=== PATIENT | male | born 1960 | race African-American/Black ===

== ENCOUNTER 2020-11-18 08:48 | Inpatient (IN) | payer SELFPAY ==
[2020-11-18 09:12] LABS: Absolute Lymphocytes (CBC) 2.2 K/uL (0.7-4.9); Hematocrit 44.6 % (39.6-49.0); Lymphocytes % 36.5 % (15.3-44.8); MPV 8.5 fL (7.6-11.3); RBC Red Blood Cell Count 5.01 M/uL (4.33-5.43)
[2020-11-18 09:20] LABS: Protime INR 0.92
--- NOTE | 2020-11-18 09:22 | EDPHYS ---
Physician Documentation [facility] Name: Kervin Young Age: 59 yrs Sex: Male : 1960 Arrival Date: 11/18/2020 Time: 08:50 Bed 7 Private MD: ED Physician London Fierro HPI: 11/18 09:16 This 59 yrs old Black Male presents to ER via EMS with complaints of Chest Pain. joey 09:16 The patient or guardian reports chest pain that is located primarily in the substernal joey area, anterior chest wall, bilaterally. Onset: this morning. The pain does not radiate. Associated signs and symptoms: Pertinent positives: dizziness, shortness of breath. The chest pain is described as crushing, squeezing. Duration: The patient or guardian reports multiple episodes, that wax and wane. Modifying factors: The symptoms are alleviated by nothing. the symptoms are aggravated by nothing. Severity of pain: At its worst the pain was moderate in the emergency department the pain is unchanged. The patient has experienced a previous episode, last week. Historical: - Allergies: 08:52 No Known Allergies; aa5 - Home Meds: 08:52 None [Active]; aa5 - PMHx: 08:52 Hypertensive disorder; "Hole in chest as a kid"; aa5 - PSHx: 08:52 None; aa5 - Immunization history:: Adult Immunizations unknown. - Social history:: Smoking status: Patient denies any tobacco usage or history of. - Family history:: not pertinent. ROS: 09:16 Constitutional: Negative for fever, chills, and weight loss, Eyes: Negative for injury, joey pain, redness, and discharge, ENT: Negative for injury, pain, and discharge, Neck: Negative for injury, pain, and swelling, Respiratory: Negative for shortness of breath, cough, wheezing, and pleuritic chest pain, Abdomen/GI: Negative for abdominal pain, nausea, vomiting, diarrhea, and constipation, Back: Negative for injury and pain, : Negative for injury, bleeding, discharge, and swelling, MS/Extremity: Negative for injury and deformity, Skin: Negative for injury, rash, and discoloration, Neuro: Negative for headache, weakness, numbness, tingling, and seizure, Psych: Negative for depression, anxiety, suicide ideation, homicidal ideation, and hallucinations, Allergy/Immunology: Negative for hives, rash, and allergies, Endocrine: Negative for neck swelling, polydipsia, polyuria, polyphagia, and marked weight changes, Hematologic/Lymphatic: Negative for swollen nodes, abnormal bleeding, and unusual bruising. 09:16 Cardiovascular: Positive for chest pain. Exam: 09:16 Constitutional: This is a well developed, well nourished patient who is awake, alert, joey and in no acute distress. Head/Face: Normocephalic, atraumatic. Eyes: Pupils equal round and reactive to light, extra-ocular motions intact. Lids and lashes normal. Conjunctiva and sclera are non-icteric and not injected. Cornea within normal limits. Periorbital areas with no swelling, redness, or edema. ENT: Nares patent. No nasal discharge, no septal abnormalities noted. Tympanic membranes are normal and external auditory canals are clear. Oropharynx with no redness, swelling, or masses, exudates, or evidence of obstruction, uvula midline. Mucous membranes moist. Neck: Trachea midline, no thyromegaly or masses palpated, and no cervical lymphadenopathy. Supple, full range of motion without nuchal rigidity, or vertebral point tenderness. No Meningismus. Chest/axilla: Normal chest wall appearance and motion. Nontender with no deformity. No lesions are appreciated. Respiratory: Lungs have equal breath sounds bilaterally, clear to auscultation and percussion. No rales, rhonchi or wheezes noted. No increased work of breathing, no retractions or nasal flaring. Abdomen/GI: Soft, non-tender, with normal bowel sounds. No distension or tympany. No guarding or rebound. No evidence of tenderness throughout. Back: No spinal tenderness. No costovertebral tenderness. Full range of motion. Male : Normal genitalia with no discharge or lesions. Skin: Warm, dry with normal turgor. Normal color with no rashes, no lesions, and no evidence of cellulitis. MS/ Extremity: Pulses equal, no cyanosis. Neurovascular intact. Full, normal range of motion. Neuro: Awake and alert, GCS 15, oriented to person, place, time, and situation. Cranial nerves II-XII grossly intact. Motor strength 5/5 in all extremities. Sensory grossly intact. Cerebellar exam normal. Normal gait. Psych: Awake, alert, with orientation to person, place and time. Behavior, mood, and affect are within normal limits. 09:16 Cardiovascular: Rate: normal, Rhythm: regular, Pulses: Pulses are 4+ in bilateral radial, brachial, femoral, popliteal, posterior tibial and and dorsalis pedis arteries.. Heart sounds: normal, normal S1and S2, no S3 or S4, no murmur, no rub, no gallop, Edema: is not appreciated, JVD: is not appreciated. 09:16 ECG was reviewed by the Attending Physician. Vital Signs: 08:50 BP 113 / 80; Pulse 71; Resp 16 S; Temp 98.0(TE); Pulse Ox 99% on R/A; Weight 79.38 kg aa5 (R); Height 5 ft. 8 in. (172.72 cm) (R); Pain 0/10; 09:45 BP 132 / 97; Pulse 71; Resp 16 S; Pulse Ox 97% on R/A; aa5 10:00 BP 126 / 84; Pulse 61; Resp 16 S; Pulse Ox 100% on R/A; aa5 11:15 BP 134 / 83; Pulse 65; Resp 18 S; Pulse Ox 100% on R/A; aa5 08:50 Body Mass Index 26.61 (79.38 kg, 172.72 cm) aa5 MDM: 08:53 Patient medically screened. joey 09:19 Differential diagnosis: abnormal EKG, acute myocardial infarction, acute pericarditis, joey anxiety, chest wall pain, cholecystitis, Cholelithiasis costochondritis, gastroesophageal reflux disease (GERD), hiatal hernia, pancreatitis, peptic ulcer disease, pleurisy, pneumonia, pulmonary embolus, stable angina, thoracic aortic disection, unstable angina. HEART Score: History: Moderately Suspicious (1), ECG: Non specific repolarization disturbance / LBTB / PM (1), Age: > 45 and < 65 years (1), Risk Factors: > or = 3 Risk factors for atherosclerotic disease (2), [Hypercholesterolemia] [Hypertension] [Active Smoker] [+ Family HX] Troponin: < or = 1 x Normal Limit (0). The patient was given aspirin in the Emergency Department. The patient's deep vein thrombosis risk score was calculated as follows: Total Score: 0. This patient was found to be at low risk for a deep vein thrombosis by using the Well's assessment criteria. The patient's pulmonary embolism risk score was calculated as follows: Total Score: 0-2 points. This patient was found to be at low risk for a pulmonary embolism by using the Well's assessment criteria. MANISH Risk Score: TOTAL SCORE = 0. Data reviewed: vital signs, nurses notes, lab test result(s), EKG, radiologic studies, plain films. Data interpreted: ekg monitor tech: rate is 71 beats/min, rhythm is regular, Pulse oximetry: on room air is 99 %. Test interpretation: by ED physician or midlevel provider: ECG, plain radiologic studies. Counseling: I had a detailed discussion with the patient and/or guardian regarding: the historical points, exam findings, and any diagnostic results supporting the discharge/admit diagnosis, the presence of at least one elevated blood pressure reading (>120/80) during this emergency department visit, lab results, radiology results, the need for further work-up and treatment in the hospital. 11/18 08:53 Order name: Basic Metabolic Panel; Complete Time: 10:20 aa5 11/18 08:53 Order name: CBC with Diff; Complete Time: 10:20 aa11/18 08:53 Order name: LFT's; Complete Time: 10:20 aa5 11/18 08:53 Order name: Magnesium; Complete Time: 10:20 aa5 11/18 08:53 Order name: NT PRO-BNP; Complete Time: 10:20 aa5 11/18 08:53 Order name: PT-INR; Complete Time: 10:20 aa5 11/18 08:53 Order name: Troponin (emerg Dept Use Only); Complete Time: 10:20 aa5 11/18 08:55 Order name: XRAY Chest (1 view); Complete Time: 10:20 joey 11/18 09:15 Order name: Urine Drug Screen joey 11/18 09:16 Order name: Urine Drug Screen; Complete Time: 11:50 EDMS 11/18 10:26 Order name: Urine Dipstick-Ancillary; Complete Time: 11:50 EDMS 11/18 10:30 Order name: SARS-COV-2 RT PCR; Complete Time: 11:50 EDMS 11/18 08:53 Order name: EKG; Complete Time: 08:54 aa5 11/18 08:53 Order name: Cardiac monitoring; Complete Time: 08:54 aa5 11/18 08:53 Order name: EKG - Nurse/Tech; Complete Time: 08:54 [facility] 11/18 08:53 Order name: IV Saline Lock; Complete Time: 08:56 [facility] 11/18 08:53 Order name: Labs collected and sent; Complete Time: 08:56 [facility] 11/18 08:53 Order name: O2 Per Protocol; Complete Time: 08:54 [facility] 11/18 08:53 Order name: O2 Sat Monitoring; Complete Time: 08:54 [facility] 11/18 08:55 Order name: Labs collected and sent; Complete Time: 08:57 [facility] 11/18 08:55 Order name: Urine Dipstick-Ancillary (obtain specimen); Complete Time: 10:26 [facility] EC:16 Rate is 70 beats/min. Rhythm is regular. QRS Harmony is Normal. ID interval is normal. QRS joey interval is normal. QT interval is normal. No Q waves. T waves are Normal. No ST changes noted. Clinical impression: NSR w/ Non-specific ST/T Changes and No evidence of ischemia. Interpreted by me. Reviewed by me. Administered Medications: 09:15 Drug: NS 0.9% 1000 ml Route: IV; Rate: 125 ml/hr; Site: right forearm; aa5 11:54 Follow up: IV Status: Order to discontinue infusion aa5 09:15 Drug: morphine 2 mg Route: IVP; Site: right forearm; aa5 09:30 Follow up: Response: No adverse reaction; Pain is decreased aa5 09:15 Drug: Zofran (Ondansetron) 4 mg Route: IVP; Site: right forearm; aa5 09:30 Follow up: Response: No adverse reaction aa5 09:15 Drug: Aspirin 81 mg Route: PO; aa5 11:48 Follow up: Response: No adverse reaction aa5 09:35 Drug: Lovenox (enoxaparin) 1 mg/kg Route: Sub-Q; Site: right lower abdomen; aa5 11:48 Follow up: Response: No adverse reaction aa5 09:35 Drug: Pepcid (famotidine) 20 mg Route: IVP; Site: right forearm; aa5 11:48 Follow up: Response: No adverse reaction aa5 10:22 Drug: NS 0.9% 1000 ml Route: IV; Rate: 1000 ml; Site: right forearm; aa5 11:30 Follow up: IV Status: Completed infusion; IV Intake: 1000ml aa5 11:36 Drug: Lopressor (metoprolol TARTRATE)) 25 mg Route: PO; aa5 11:47 Follow up: Response: No adverse reaction aa5 Disposition Summary: 11/18/20 09:22 Hospitalization Ordered Hospitalization Status: Observation joey Provider: Al Estrada cha Location: Telemetry/MedSurg (observation) joey Condition: Stable joey Problem: new joey Symptoms: have improved joey Bed/Room Type: Standard joey Room Assignment: 224(11/18/20 10:20) dw Diagnosis - Chest pain, unspecified joey - Essential (primary) hypertension joey - Angina pectoris, unspecified joey Forms: - Medication Reconciliation Form joey - SBAR form joey Signatures: Dispatcher [employer] Julissa Walker RN RN London Nash MD MD cha Calderon, Audri, RN RN aa5 Corrections: (The following items were deleted from the chart) 08:56 08:55 Cardiac monitoring ordered. [facility] aa5 08:57 08:55 EKG - Nurse/Tech ordered. joey aa5 08:57 08:55 IV Saline Lock ordered. [facility] aa5 08:57 08:55 Oxygen Per Protocol ordered. [facility] aa5 08:57 08:55 O2 Sat Monitoring ordered. [facility] aa5 08:57 08:55 BASIC METABOLIC PANEL+C.LAB.BRZ ordered. EDMS EDMS 08:57 08:55 CBC+H.LAB.BRZ ordered. EDMS EDMS 08:57 08:55 HEPATIC FUNCTION+C.LAB.BRZ ordered. EDMS EDMS 08:57 08:55 MAGNESIUM+C.LAB.BRZ ordered. EDMS EDMS 08:57 08:55 PROBNP+C.LAB.BRZ ordered. EDMS EDMS 08:57 08:55 PROTIME (+INR)+COAG.LAB.BRZ ordered. EDMS EDMS 08:57 08:55 TROPONIN (EMERG DEPT USE ONLY)+C.LAB.BRZ ordered. EDMS EDMS 08:57 08:55 LIPASE+C.LAB.BRZ ordered. EDMS EDMS 09:18 08:54 Chest Single View+RAD.RAD.BRZ ordered. EDMS EDMS 09:35 08:55 CORONAVIRUS+MR.LAB.BRZ ordered. EDMS EDMS 10:20 09:22 joey dw
--- NOTE | 2020-11-18 09:22 | ER ---
Nurse's Notes [facility] [place] Name: Kervin Young Age: 59 yrs Sex: Male : 1960 Arrival Date: 11/18/2020 Time: 08:50 Bed 7 Private MD: Diagnosis: Chest pain, unspecified;Essential (primary) hypertension;Angina pectoris, unspecified Presentation: 11/18 08:50 Chief complaint: Patient states: Intermittent mid-sternal chest pain that began 2 days aa5 ago. Pt denies any other symptoms, denies nausea/vomiting, denies SOB. Coronavirus screen: At this time, the client does not indicate any symptoms associated with coronavirus-19. Ebola Screen: Patient negative for fever greater than or equal to 101.5 degrees Fahrenheit, and additional compatible Ebola Virus Disease symptoms. Initial Sepsis Screen: Does the patient meet any 2 criteria? No. Patient's initial sepsis screen is negative. Does the patient have a suspected source of infection? No. Patient's initial sepsis screen is negative. Risk Assessment: Do you want to hurt yourself or someone else? Patient reports no desire to harm self or others. Onset of symptoms was November 2020. 08:50 Acuity: BLU 3 aa5 08:50 Method Of Arrival: EMS: [facility] aa5 Historical: - Allergies: 08:52 No Known Allergies; aa5 - Home Meds: 08:52 None [Active]; aa5 - PMHx: 08:52 Hypertensive disorder; "Hole in chest as a kid"; aa5 - PSHx: 08:52 None; aa5 - Immunization history:: Adult Immunizations unknown. - Social history:: Smoking status: Patient denies any tobacco usage or history of. - Family history:: not pertinent. Screenin:53 Abuse screen: Denies threats or abuse. Nutritional screening: No deficits noted. aa5 Tuberculosis screening: No symptoms or risk factors identified. Fall Risk None identified. Assessment: 08:54 General: Appears comfortable, Behavior is calm, cooperative. Pain: Complains of pain in aa5 mid-sternal area Pain does not radiate. Pain currently is 0 out of 10 on a pain scale. Quality of pain is described as sharp, Pain began 1 day ago. Is intermittent. Neuro: Level of Consciousness is awake, alert, obeys commands, Oriented to person, place, time, situation. Cardiovascular: Heart tones S1 S2 present Rhythm is regular. Respiratory: Airway is patent Respiratory effort is even, unlabored, Respiratory pattern is regular, symmetrical, Breath sounds are clear bilaterally. Denies cough, shortness of breath. GI: No signs and/or symptoms were reported involving the gastrointestinal system. Patient currently denies diarrhea, nausea, vomiting. : No signs and/or symptoms were reported regarding the genitourinary system. EENT: No signs and/or symptoms were reported regarding the EENT system. Derm: Skin is dry, Skin is normal, Skin temperature is warm. Musculoskeletal: Range of motion: intact in all extremities. 09:15 Reassessment: Pt rates pain 8/10 on a pain scale at this time. . aa5 09:15 Neuro: Level of Consciousness is awake, alert, obeys commands, Oriented to person, aa5 place, time, situation. Respiratory: Airway is patent Respiratory effort is even, unlabored, Respiratory pattern is regular, symmetrical. Derm: Skin is dry, Skin is normal, Skin temperature is warm. 09:21 Reassessment: Pt reports he is currently at [facility] for cocaine abuse, last aa5 use was "3 weeks ago" . 10:22 Reassessment: Urine collected, UDS sent to lab. Metoprolol on hold per MD until UDS aa5 results. . 10:22 Neuro: Level of Consciousness is awake, alert, obeys commands, Oriented to person, aa5 place, time, situation. Respiratory: Airway is patent Respiratory effort is even, unlabored, Respiratory pattern is regular, symmetrical. Derm: Skin is dry, Skin is normal, Skin temperature is warm. 11:33 Reassessment: Attempted to call report, nurse to call back. sv 11:33 Neuro: Level of Consciousness is awake, alert, obeys commands, Oriented to person, aa5 place, time, situation. Respiratory: Airway is patent Respiratory effort is even, unlabored, Respiratory pattern is regular, symmetrical. Derm: Skin is dry, Skin is normal, Skin temperature is warm. 11:33 Pain: Denies pain. aa5 12:15 Neuro: Level of Consciousness is awake, alert, obeys commands, Oriented to person, aa5 place, time, situation. Respiratory: Airway is patent Respiratory effort is even, unlabored, Respiratory pattern is regular, symmetrical. Derm: Skin is dry, Skin is normal, Skin temperature is warm. Vital Signs: 08:50 BP 113 / 80; Pulse 71; Resp 16 S; Temp 98.0(TE); Pulse Ox 99% on R/A; Weight 79.38 kg aa5 (R); Height 5 ft. 8 in. (172.72 cm) (R); Pain 0/10; 09:45 BP 132 / 97; Pulse 71; Resp 16 S; Pulse Ox 97% on R/A; aa5 10:00 BP 126 / 84; Pulse 61; Resp 16 S; Pulse Ox 100% on R/A; aa5 11:15 BP 134 / 83; Pulse 65; Resp 18 S; Pulse Ox 100% on R/A; aa5 08:50 Body Mass Index 26.61 (79.38 kg, 172.72 cm) 5 ED Course: 08:50 Patient arrived in ED. aa5 08:50 Arm band placed on Patient placed in an exam room, on a stretcher. EKG completed in [facility] triage. Results shown to MD. 08:50 Patient has correct armband on for positive identification. Bed in low position. Call [facility] light in reach. Side rails up X2. playground monitor on. Pulse ox on. NIBP on. 08:50 Inserted saline lock: 20 gauge in right forearm, using aseptic technique. Blood sv collected. Flushed right forearm with 5 ml normal saline. 08:50 EKG done, by ED staff, reviewed by London Fierro MD. [facility] 08:52 Triage completed. aa5 08:53 London Fierro MD is Attending Physician. joey 08:54 Denita Turcios, ARMANDO is Primary Nurse. aa5 09:19 XRAY Chest (1 view) In Process Unspecified. EDMS 09:21 Al Estrada DO is Hospitalizing Provider. joey 11:11 Urine Drug Screen Sent. sv 12:15 No provider procedures requiring assistance completed. Patient maintains SpO2 aa saturation greater than 95% on room air. 12:15 Patient admitted, IV remains in place. aa5 Administered Medications: 09:15 Drug: NS 0.9% 1000 ml Route: IV; Rate: 125 ml/hr; Site: right forearm; [facility] 11:54 Follow up: IV Status: Order to discontinue infusion aa5 09:15 Drug: morphine 2 mg Route: IVP; Site: right forearm; aa5 09:30 Follow up: Response: No adverse reaction; Pain is decreased aa5 09:15 Drug: Zofran (Ondansetron) 4 mg Route: IVP; Site: right forearm; aa5 09:30 Follow up: Response: No adverse reaction aa5 09:15 Drug: Aspirin 81 mg Route: PO; aa5 11:48 Follow up: Response: No adverse reaction aa5 09:35 Drug: Lovenox (enoxaparin) 1 mg/kg Route: Sub-Q; Site: right lower abdomen; aa5 11:48 Follow up: Response: No adverse reaction aa5 09:35 Drug: Pepcid (famotidine) 20 mg Route: IVP; Site: right forearm; aa5 11:48 Follow up: Response: No adverse reaction aa5 10:22 Drug: NS 0.9% 1000 ml Route: IV; Rate: 1000 ml; Site: right forearm; aa5 11:30 Follow up: IV Status: Completed infusion; IV Intake: 1000ml aa5 11:36 Drug: Lopressor (metoprolol TARTRATE)) 25 mg Route: PO; aa5 11:47 Follow up: Response: No adverse reaction aa5 Intake: 11:30 IV: 1000ml; Total: 1000ml. aa5 Outcome: 09:22 Decision to Hospitalize by Provider. joey 12:15 Admitted to Med/surg accompanied by tech, via wheelchair, with chart, Report called to dary Trinidad RN 12:15 Condition: stable 12:15 Instructed on the need for admit, Demonstrated understanding of instructions. 12:20 Patient left the ED. iw Signatures: Dispatcher [employer] EDND Ct Treviño RN RN sv Anderson, Corey, MD MD cha Williams, Irene, RN RN iw Calderon, Audri, RN RN aa5 Herrera, Deanna 3 Corrections: (The following items were deleted from the chart) 11:46 09:15 Reassessment: Patient is alert, oriented x 3, equal unlabored respirations, skin aa5 warm/dry/pink. Pt rates pain 8/10 on a pain scale at this time. . aa5 17:32 11:15 No provider procedures requiring assistance completed. aa5 aa5 17:32 11:15 Patient maintains SpO2 saturation greater than 95% on room air. aa5 aa5
[2020-11-18] MEDS ORDERED: ASPIRIN 81 MG CHEWABLE TABLET ONE (09:26)
[2020-11-18] MEDS ORDERED: NA CHLORIDE 0.9% 1,000 ML ONE (09:26)
[2020-11-18] MEDS ORDERED: MORPHINE 2 MG/ML SYR ONE (09:31)
[2020-11-18] MEDS ORDERED: ONDANSETRON 4 MG/2 ML VIAL ONE (09:32)
[2020-11-18 09:33] LABS: ALT/SGPT 33 U/L (12-78); AST/SGOT 17 U/L (15-37); Albumin 3.5 g/dL (3.4-5.0); Alkaline Phosphatase 63 U/L (45-117); BUN Blood Urea Nitrogen 8 mg/dL (7-18); Bicarbonate 28 mmol/L (21-32); Bilirubin Direct < 0.1 mg/dL (0-0.2); Bilirubin Total 0.7 mg/dL (0.2-1.0); Glucose Level 106 mg/dL (74-106); NT PRO-BNP 21 pg/mL (<125); Potassium 4.1 mmol/L (3.5-5.1); Protein, Total 7.1 g/dL (6.4-8.2); Sodium Level 139 mmol/L (136-145); Troponin (Emerg Dept Use Only) < 0.02 ng/mL (0.0-0.045)
[2020-11-18] MEDS ORDERED: METOPROLOL TAR 25 MG TAB ONE (09:55)
[2020-11-18] MEDS ORDERED: ENOXAPARIN 80 MG/0.8 ML SQ ONE (09:55)
[2020-11-18] MEDS ORDERED: FAMOTIDINE 20 MG/2 ML VIAL IV ONE (09:55)
--- NOTE | 2020-11-18 10:02 | P.HP ---
Certification for Inpatient Patient admitted to: Observation With expected LOS: <2 Midnights Patient will require the following post-hospital care: None Practitioner: I am a practitioner with admitting privileges, knowledge of patient current condition, hospital course, and medical plan of care. Services: Services provided to patient in accordance with Admission requirements found in Title 42 Section 412.3 of the Code of Federal Regulations Patient History Date of Service: 11/18/20 Primary Care Provider: none, From [place] Reason for admission: Chest pain History of Present Illness: 59-year-old male presented to the emergency room with chest pain. Patient is originally from [facility]. He is here in the area recovering from cocaine abuse. He is at a treatment center-[facility]. He has been there for the past 3 weeks. Patient reports chest pain over the last 2 days. Chest pain is mainly to the substernal region. It lasts about 30-45 min. He denies any shortness of breath, nausea vomiting with this. He came to the ER for further evaluation. Patient reports a last use of cocaine about 3 weeks ago. Patient reports a history of a hole in his heart. He reports a history of hypertension but does not take any medications at this time. In the ER patient was evaluated. EKG shows some early repolarization. Initial cardiac enzymes unremarkable. BMP stable with a sodium 139, potassium 4.1, BUN of 8, creatinine 0.93 with a GFR greater than 90. Glucose 106. Patient admitted for further evaluation and treatment. Home medications list reviewed: Yes (Reports no medication) - Past Medical/Surgical History -: Cocaine abuse -: History of hypertension -: History of hole in his heart Past Surgical History: Patient denies surgical history Psychosocial/ Personal History: Patient currently at [facility] for cocaine rehab recovery. He is single. He has 3 kids. - Family History Family History: Reviewed- Non-Contributory - Social History Smoking Status: Never smoker Alcohol use: Yes CD- Drugs: Yes Caffeine use: No Place of Residence: Home Review of Systems General: Weakness, As per HPI Eyes: Unremarkable ENT: Unremarkable Respiratory: Unremarkable Cardiovascular: Chest Pain, As per HPI Gastrointestinal: Unremarkable Genitourinary: Unremarkable Musculoskeletal: Unremarkable Integumentary: Unremarkable Neurological: Unremarkable Lymphatics: Unremarkable Physical Examination - Physical Exam General: Alert, In no apparent distress, Oriented x3, Cooperative HEENT: Atraumatic, Normocephalic, Mucous membr. moist/pink Neck: Supple Respiratory: Clear to auscultation bilaterally, Normal air movement Cardiovascular: Normal pulses, Regular rate/rhythm Gastrointestinal: Normal bowel sounds, Soft and benign, Non-distended, No tenderness, No masses, No rebound, No guarding Musculoskeletal: No erythema, No tenderness, No warmth Integumentary: No tenderness/swelling, No erythema, No warmth, No cyanosis Neurological: Normal speech, Normal strength at 5/5 x4 extr, Normal tone, Normal affect - Studies Laboratory Data (last 24 hrs) 11/18/20 08:55: PT Cancelled, INR Cancelled 11/18/20 08:55: WBC Cancelled, Hgb Cancelled, Hct Cancelled, Plt Count Cancelled 11/18/20 08:55: Sodium Cancelled, Potassium Cancelled, BUN Cancelled, Creatinine Cancelled, Glucose Cancelled, Magnesium Cancelled, Total Bilirubin Cancelled, AST Cancelled, ALT Cancelled, Alkaline Phosphatase Cancelled, Lipase Cancelled 11/18/20 08:50: PT 10.6, INR 0.92 11/18/20 08:50: WBC 6.10, Hgb 15.1, Hct 44.6, Plt Count 285 11/18/20 08:50: Sodium 139, Potassium 4.1, BUN 8, Creatinine 0.93, Glucose 106, Magnesium 2.0, Total Bilirubin 0.7, AST 17, ALT 33, Alkaline Phosphatase 63 Assessment and Plan - Plan Impression: Chest pain History of cocaine abuse currently in recovery GERD Plan: Chest pain: Patient will be admitted for further evaluation and treatment. Will continue with aspirin, Lovenox for DVT prophylaxis, nitroglycerin as needed for chest pain. Will order echocardiogram to further evaluate. Will evaluate for septum defect. Consult cardiology. Cardiology to assess and evaluate. Patient may require inpatient cardiac evaluation. Await further recommendations. EKG reviewed with cardiology. Will provide medication for pain. History of cocaine abuse currently in recovery: Patient currently at a rehab facility for cocaine abuse. Patient reports last use of cocaine about 3 weeks ago. GERD: Will provide Protonix. DVT prophylaxis: Lovenox Code status: Full code Advanced care planning-30 min: Patient plans to return back to the rehab facility after evaluation by Cardioshira dorsey. Discharge Plan: Home Plan to discharge in: 24 Hours - Advance Directives Does patient have a Living Will: No Does patient have a Durable POA for Healthcare: No - Code Status/Comfort Care Code Status Assessed: Yes (Full code) Time Spent Managing Pts Care (In Minutes): 55
--- NOTE | 2020-11-18 10:19 | RAD REPORT ---
EXAM DESCRIPTION: RAD - Chest Single View - 11/18/2020 9:18 am CLINICAL HISTORY: Chest pain COMPARISON: None. TECHNIQUE: AP portable chest image was obtained . FINDINGS: Lungs are clear. Heart and vasculature are normal. No measurable pleural effusion and no p neumothorax. No gross bony abnormality seen. IMPRESSION: No acute cardiopulmonary process.
[2020-11-18 10:26] LABS: Urine Blood Negative (Negative); Urine Glucose Negative (Negative); Urine Protein Negative (Negative); Urine Specific Gravity 1.015 (1.005-1.030); Urine pH 7.5 (5.0-7.0)
[2020-11-18 11:04] LABS: Barbiturates NEGATIVE (NEGATIVE); Benzodiazepines NEGATIVE (NEGATIVE); Cocaine NEGATIVE (NEGATIVE); METHAMPHETAM NEGATIVE (NEGATIVE); Methadone NEGATIVE (NEGATIVE); Opiates NEGATIVE (NEGATIVE); Phencyclidine NEGATIVE (NEGATIVE); THC Cannibis NEGATIVE (NEGATIVE)
[2020-11-18] MEDS ORDERED: ONDANSETRON 4 MG/2 ML VIAL IV PRN (12:03)
[2020-11-18] MEDS ORDERED: NITROGLYCERIN 0.4 MG/TAB SL PRN (12:03)
[2020-11-18] MEDS: PANTOPRAZOLE 40MG TABLET PO SCH (12:03)
[2020-11-18] MEDS: ASPIRIN EC 81 MG TAB PO SCH (12:03)
[2020-11-18] MEDS ORDERED: ACETAMINOPHEN 500 MG TAB PO PRN (12:03)
[2020-11-18] MEDS ORDERED: TRAMADOL HCL 50 MG TAB PO PRN (12:03)
[2020-11-18 12:23] VITALS: BMI 26.6
[2020-11-18 14:58] LABS: Creatine Phosphokinase 137 U/L (39-308); Troponin I < 0.02 ng/mL (0.0-0.045)
[2020-11-18 15:05] LABS: CKMB Creatine Kinase MB < 1.0 ng/mL (1.0-3.6)
[2020-11-18] MEDS: NA CHLORIDE 0.9% 1,000 ML IV SCH (15:12)
[2020-11-18] MEDS: FOLIC ACID 1 MG TABLET PO SCH (15:12)
[2020-11-18] MEDS: THIAMINE HCL 100 MG TABLET PO SCH (15:15)
--- NOTE | 2020-11-18 16:08 | EKG ---
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
[2020-11-18 19:59] LABS: Creatine Phosphokinase 139 U/L (39-308); Troponin I < 0.02 ng/mL (0.0-0.045)
[2020-11-18 20:19] LABS: CKMB Creatine Kinase MB < 1.0 ng/mL (1.0-3.6)
[2020-11-19 05:20] LABS: BUN Blood Urea Nitrogen 8 mg/dL (7-18); Bicarbonate 29 mmol/L (21-32); Glucose Level 118 mg/dL (74-106); HDL Cholesterol 53 mg/dL (40-60); Potassium 4.2 mmol/L (3.5-5.1); Sodium Level 139 mmol/L (136-145)
[2020-11-19 05:31] LABS: LDL, Direct 125 mg/dL (100-129)
[2020-11-19] MEDS: PANTOPRAZOLE 40MG TABLET PO SCH (05:46)
[2020-11-19 06:08] VITALS: O2SAT 98
--- NOTE | 2020-11-19 06:10 | P.DS ---
Admission Date: 11/19/20 Discharge Date: 11/19/20 Primary Care Provider: none, From [place] Disposition: ROUTINE DISCHARGE Discharge Condition: GOOD Reason for Admission: Chest pain Consultations: Cardiology-Dr. Zuluaga Procedures: Stress test outpatient: Normal about 6 months ago per patient. Somewhere in [place] ECHO: Unremarkable Medical Problem list: Chest pain, atypical History of cocaine abuse currently in recovery GERD Mixed hyperlipidemia Brief History of Present Illness: 59-year-old male presented to the emergency room with chest pain. Patient is originally from [facility]. He is here in the area recovering from cocaine abuse. He is at a treatment center-[facility]. He has been there for the past 3 weeks. Patient reports chest pain over the last 2 days. Chest pain is mainly to the substernal region. It lasts about 30-45 min. He denies any shortness of breath, nausea vomiting with this. He came to the ER for further evaluation. Patient reports a last use of cocaine about 3 weeks ago. Patient reports a history of a hole in his heart. He reports a history of hypertension but does not take any medications at this time. In the ER patient was evaluated. EKG shows some early repolarization. Initial cardiac enzymes unremarkable. BMP stable with a sodium 139, potassium 4.1, BUN of 8, creatinine 0.93 with a GFR greater than 90. Glucose 106. Patient admitted for further evaluation and treatment. Hospital Course: Patient presented with chest pain. Chest pain was atypical. Patient with history of cocaine abuse currently in recovery. Patient was seen and evaluated by cardiology. Cardiology recommended no inpatient intervention. Echocardiogram unremarkable. Patient reports recent outpatient cardiac stress test within the past 6 months which was unremarkable. No further intervention required. Patient likely with underlying GERD. At discharge patient may continue with Pepcid 20 mg 1 pill twice daily. Recommend to follow-up with his PCP in 1 to 2 weeks to follow-up as hospitalization. Patient with history of cocaine abuse. Urine drug screen negative. Patient currently in recovery. Patient will return back to rehab facility continue his recovery. Patient has remained committed. Patient with mixed hyperlipidemia. Total triglycerides 419, LDL 125. Recommend to start fish oil 1000 mg 1 pill twice daily. Recommend to recheck fasting lipid panel in 4 to 6 weeks to monitor his progress. Further adjustment in medication can be done by his PCP. Vital Signs/Physical Exam: Temp Pulse Resp BP Pulse Ox 98.1 F 67 18 95/50 L 95 11/19/20 00:00 11/19/20 00:00 11/19/20 00:00 11/19/20 00:00 11/19/20 00:00 General: Alert, In no apparent distress, Oriented x3, Oriented x1 HEENT: Atraumatic Neck: Supple Respiratory: Clear to auscultation bilaterally, Normal air movement Cardiovascular: Normal pulses, Regular rate/rhythm Gastrointestinal: Normal bowel sounds, No tenderness, No masses, No rebound, No guarding Musculoskeletal: No erythema, No tenderness, No warmth Integumentary: No tenderness/swelling, No erythema, No warmth, No cyanosis Neurological: Normal speech, Normal strength at 5/5 x4 extr, Normal tone, Normal affect Laboratory Data at Discharge: WBC Cancelled 11/18/20 08:55 Hgb Cancelled 11/18/20 08:55 Hct Cancelled 11/18/20 08:55 Plt Count Cancelled 11/18/20 08:55 PT Cancelled 11/18/20 08:55 INR Cancelled 11/18/20 08:55 Sodium 139 mmol/L (136-145) 11/19/20 03:47 Potassium 4.2 mmol/L (3.5-5.1) 11/19/20 03:47 BUN 8 mg/dL (7-18) 11/19/20 03:47 Creatinine 0.97 mg/dL (0.55-1.3) 11/19/20 03:47 Glucose 118 mg/dL (74-106) H 11/19/20 03:47 Magnesium 2.0 mg/dL (1.8-2.4) 11/19/20 03:47 Total Bilirubin Cancelled 11/18/20 08:55 AST Cancelled 11/18/20 08:55 ALT Cancelled 11/18/20 08:55 Alkaline Phosphatase Cancelled 11/18/20 08:55 Troponin I < 0.02 ng/mL (0.0-0.045) 11/18/20 19:16 Triglycerides 419 mg/dL (<150) H 11/19/20 03:47 Cholesterol 225 mg/dL (<200) H 11/19/20 03:47 LDL Cholesterol Direct 125 mg/dL (100-129) 11/19/20 03:47 HDL Cholesterol 53 mg/dL (40-60) 11/19/20 03:47 Cholesterol/HDL Ratio 4.25 11/19/20 03:47 Lipase Cancelled 11/18/20 08:55 Home Medications: Docosahexanoic AC/Epa [Fish Oil 1,000 MG CAP] 1 cap PO BID #60 cap 11/19/20 Famotidine [Pepcid] 20 mg PO BID #60 tab 11/19/20 New Medications: Docosahexanoic AC/Epa [Fish Oil 1,000 MG CAP] 1 cap PO BID #60 cap Famotidine [Pepcid] 20 mg PO BID #60 tab Physician Discharge Instructions: Patient presented with chest pain. Chest pain was atypical. Patient with history of cocaine abuse currently in recovery. Patient was seen and evaluated by cardiology. Cardiology recommended no inpatient intervention. Echocardiogram unremarkable. Patient reports recent outpatient cardiac stress test within the past 6 months which was unremarkable. No further intervention required. Patient likely with underlying GERD. At discharge patient may continue with Pepcid 20 mg 1 pill twice daily. Recommend to follow-up with his PCP in 1 to 2 weeks to follow-up as hospitalization. Patient with history of cocaine abuse. Urine drug screen negative. Patient currently in recovery. Patient will return back to rehab facility continue his recovery. Patient has remained committed. Patient with mixed hyperlipidemia. Total triglycerides 419, LDL 125. Recommend to start fish oil 1000 mg 1 pill twice daily. Recommend to recheck fasting lipid panel in 4 to 6 weeks to monitor his progress. Further adjustment in medication can be done by his PCP. Diet: AHA Activity: Ad tru Followup: NONE,NONE [Primary Care Provider] - Time spent managing pt's care (in minutes): 55
[2020-11-19] MEDS: NA CHLORIDE 0.9% 1,000 ML IV SCH (08:03)
--- NOTE | 2020-11-19 08:09 | ECHO ---
HEIGHT: 5 ft 8 in WEIGHT: 175 lb 0 oz DATE OF STUDY: 11/18/[address]: Al Estrada DO 2-DIMENSIONAL: YES M.MODE: YES DOPPLER: YES COLOR FLOW: YES TDS: NO PORTABLE: NO DEFINITY: NO BUBBLE STUDY: NO DIAGNOSIS: CHEST PAIN/ HISTORY OF POSSIBLE ASD/VSD CARDIAC HISTORY: CATHERIZATION: SURGERY: PROSTHETIC VALVE: PACEMAKER: MEASUREMENTS (cm) DIASTOLIC (NORMALS) SYSTOLIC (NORMALS) IVSd 1.3 (0.6-1.2) LA Diam 3.3 (1.9-4.0) LVEF 67% LVIDd 3.8 (3.5-5.7) LVIDs 2.4 (2.0-3.5) %FS 36% LVPWd 1.3 (0.6-1.2) Ao Diam 2.8 (2.0-3.7) 2 DIMENSIONAL ASSESSMENT: RIGHT ATRIUM: NORMAL LEFT ATRIUM: NORMAL RIGHT VENTRICLE: NORMAL LEFT VENTRICLE: LEFT VENTRICULAR HYPERTROPHY TRICUSPID VALVE: NORMAL MITRAL VALVE: NORMAL PULMONIC VALVE: NORMAL AORTIC VALVE: NORMAL PERICARDIAL EFFUSION: NONE AORTIC ROOT: NORMAL LEFT VENTRICULAR WALL MOTION: NORMAL. DOPPLER/COLOR FLOW: NORMAL. COMMENTS: MILD LEFT VENTRICULAR HYPERTROPHY. NORMAL LEFT VENTRICULAR FUNCTION. NO WALL MOTION ABNORMALITY. NO EFFUSION. TECHNOLOGIST: YAHAIRA ESTEVEZ
[2020-11-19] MEDS: FOLIC ACID 1 MG TABLET PO SCH (08:50)
[2020-11-19] MEDS: THIAMINE HCL 100 MG TABLET PO SCH (08:50)
[2020-11-19] MEDS: ASPIRIN EC 81 MG TAB PO SCH (08:51)
[2020-11-19] MEDS ORDERED: ENOXAPARIN 40 MG/0.4 ML SQ SCH (09:00)
[2020-11-19 09:50] VITALS: BP 116/77; TEMP 97.9
--- NOTE | 2020-11-20 05:46 | PN ---
The patient was admitted and seen on 11/18/2020. He was admitted with chest pain. Normal EKG, normal x-ray. Echocardiogram was ordered and done that was basically normal without any evidence of ASD, wall motion abnormalities, or effusion. His tropo renate remained negative. I am comfortable with him going home. I would definitely put him on a proton pump inhibitor. He had a negative stress test in the past by physicians in [place], and I would recommend he go back there and see them if he has any more chest pain. BOONE/DEREK Voice ID: [id number] Report ID: [id number]
--- NOTE | 2020-11-26 08:53 | CON ---
Date of Consultation: 11/18/2020 The patient was admitted to Dr. Estrada's service on 11/18/2020. I saw the patient on 11/18/2020. Reason For Consultation: Chest pain and hypertension. History Of Present Illness: Mr. Duque is a 59-year-old black male without any significant past cardi ac history except for hypertension. He has a primary care physician, I believe in [place]. He ca me in complaining of chest pain in the anterior wall that does not radiate. He did have some dizzine ss and shortness of breath. No nausea, vomiting, diaphoresis, PND, orthopnea, pedal edema, palpitati ons, or syncope. Has had a negative cardiac workup approximately a year ago. Past Medical History: As stated above. Allergies: NONE. Medications: He is not taking any medication at this point. His medications at home are supposed to be Pepcid and fish oil. Review of Systems: Negative. Social History: Negative. Family History: Noncontributory. Physical Examination: Vital Signs: Stable, afebrile. Sinus rhythm. HEENT: Negative. Neck: Supple without any bruit, lymphadenopathy, JVD, or thyromegaly. Chest: Clear to auscultation and percussion. Cardiac: Revealed a regular rhythm and rate with S4 gallops. Abdomen: Benign. Extremities: Revealed no clubbing, cyanosis, or edema. Diagnostic Data: Showed triglyceride 419, cholesterol 225 with an LDL of 125, HDL of , nor mal ratio. His T4 level was low at 0.69 with a normal TSH. Chest x-ray is unremarkable. His EKG sh owed early repolarization. Echocardiogram had been ordered. I do not think we need to repeat another stress test at this point. He has negative troponin, negati ve EKG, negative chest x-ray. Symptoms, I believe are more likely to be gastroesophageal reflux dise ase in nature. I will continue to follow him. BOONE/MODL Voice ID: [id number] Report ID: [id number]
== END 2020-11-19 10:21 | disposition home or self-care (01) | DRG 313 ==
LOC: ER 08:48 → ERHOLD 09:45 → 2ND 11:56 → OBSVTOIN 11-19 07:48
PROVIDERS: ADMIT Family Medicine; ATTEND Family Medicine
DX: R07.89 Other chest pain (principal); F14.11 Cocaine abuse, in remission; K21.9 Gastro-esophageal reflux disease without esophagitis; E78.2 Mixed hyperlipidemia; Z20.822 Contact with and (suspected) exposure to COVID-19
CPT/HCPCS: 36415; 71045; 80048; 80061; 80076; 80307; 81003; 82550; 82553; 83735; 83880; 84439; 84443; 84484; 85025; 85610; 93005; 93306; 96361; 96372; 96374; 96375; 99285; G0378; J1650; J2270; J2405; J7030; U0003